=== PATIENT | female | born 1975 | race Caucasian/White ===

== ENCOUNTER 2018-10-20 10:25 | Emergency (ER) | payer OTHER ==
[~2018-10-20] VITALS: Ht 167.6 cm; Wt 77.1 kg
[2018-10-20 10:46] VITALS: Ht 167.6 cm; Wt 77.1 kg
[2018-10-20 13:20] LABS: BASOPHIL % 0.3 % (0-2); PLATELET COUNT 353 x10^3mcL (130-400)
[2018-10-20 13:24] LABS: RED CELL DISTRIBUTION WIDTH 17.9 % (11.5-14.5)
[2018-10-20 13:51] LABS: microscopic required? YES; urine erythrocyte TRACE (NEGATIVE)
[2018-10-20 14:29] LABS: CARBON DIOXIDE 26.3 mmol/L (21-32); CHLORIDE SERUM 100 mmol/L (98-107); CREATININE SERUM 0.6 mg/dL (0.6-1.0); GFR1 > 60 mL/min; GLUCOSE SERUM 326 mg/dL (74-106); POTASSIUM SERUM 4.4 mmol/L (3.5-5.1); SODIUM SERUM 135 mmol/L (136-145)
[2018-10-20 14:33] LABS: ALBUMIN 3.5 g/dL (3.4-5.0); ALKALINE PHOSPHATASE 117 U/L (46-116); ALT/SGPT 259 U/L (14-59); AMYLASE 35 U/L (25-115); AST/SGOT 98 U/L (15-37); BILIRUBIN TOTAL 0.3 mg/dL (0.20-1.00); CHOLESTEROL 140 mg/dL (<200); HDL CHOLESTEROL 42 mg/dL (40-60); LIPASE 117 IU/L (73-393); TOTAL PROTEIN, SERUM 8.2 g/dL (6.4-8.2)
[2018-10-20 16:40] VITALS: BP 129/73
== END 2018-10-20 16:40 | disposition home or self-care (01) ==
LOC: ED 10:25
PROVIDERS: Emergency Medicine
DX: K59.00 Constipation, unspecified (principal); E11.9 Type 2 diabetes mellitus without complications; Z90.49 Acquired absence of other specified parts of digestive tract
CPT/HCPCS: 82962; J1815; J7030; Q0092